=== PATIENT | female | born 1940 | race African-American/Black ===

== ENCOUNTER 2018-09-05 21:53 | Observation (INO) ==
[2018-09-05 23:06] LABS: Basophils % 0.1 % (0.0-0.8); Eosinophils % 0.3 % (0.00-10.9); Hematocrit 37.3 VOL% (35.7-47.0); Hemoglobin 11.4 GM/DL (12.0-16.0); Immature Granulocytes % 0.8 %; Immature Granulocytes Absolute 0.09 #; Lymphocytes # 0.5 10*3/uL (1.4-4.0); Lymphocytes % 4.6 % (21.3-54.2); Mean Corpuscular HGB Conc 30.6 GM/DL (32-36); Mean Corpuscular Hemoglobin 26 PG (27-34); Mean Corpuscular Volume 86.1 FL (87-102); Mean Platelet Volume 11.5 FL (9.6-12.0); Monocytes # 0.3 10*3/uL (0.11-0.8); Monocytes % 2.6 % (1.7-12.7); Neutrophils # 9.7 10*3/uL (1.4-7.4); Neutrophils % 91.6 % (38.7-73.9); Platelet Count 303 T/CUMM (130-400); Red Blood Count 4.33 MC/CUMM (3.8-5.5); Red Cell Distribution Width 16.7 % (9.3-17.3); White Blood Count 10.6 T/CUMM (4-12)
[2018-09-05 23:15] LABS: INR 1.5; PT Patient Result 15.7 SECS; Partial Thromboplastin Time 29.9 SECS (0-40)
[2018-09-05 23:18] LABS: Alanine Aminotransferase 22 U/L (13-56); Albumin 2.6 G/DL (3.4-5.0); Alkaline Phosphatase 78 U/L (45-117); Aspartate Amino Transferase 15 U/L (0-37); Bilirubin,Total < 0.39 MG/DL (0.2-1.0); Blood Urea Nitrogen 9 MG/DL (7-18); Calcium 8.8 MG/DL (8.5-10.1); Glucose 118 MG/DL (74-106); Osmolality,Calculated 272.8 MOS/KG (273-304); Sodium 137 MMOL/L (136-145); Total Protein 7.5 G/DL (6.4-8.3)
[2018-09-05 23:32] LABS: Lymphocytes 4 % (20-55); Segmented Neutrophils 94 % (50-85)
[2018-09-05 23:34] LABS: Ovalocytes 1+; Platelet Estimate Normal
[2018-09-05 23:35] LABS: Hypochromasia Slight; Polychromasia Few; Total Cells Counted 100
[2018-09-06] MEDS ORDERED: SODIUM CHLORIDE 0.9% 1,000 ML IV STA (00:46)
[2018-09-06] MEDS ORDERED: ONDANSETRON 4 MG/2 ML VIAL IV PRN (03:45)
[2018-09-06] MEDS ORDERED: ALBUTEROL/IPRATROPIUM 3 ML NEB RESP TX PRN (04:28)
[2018-09-06 09:16] LABS: Hematocrit 35.5 VOL% (35.7-47.0); Hemoglobin 10.9 GM/DL (12.0-16.0)
[2018-09-06] MEDS ORDERED: SULFAMETHOX/TRIMETHOPRIM 800-160 MG TABLET ONE (10:13)
[2018-09-06] MEDS: predniSONE 10 MG TABLET PO SCH (11:20)
[2018-09-06] MEDS: SULFAMETHOX/TRIMETHOPRIM 400-80 MG TABLET PO SCH ×2 (11:20→20:53)
[2018-09-06] MEDS: NITROFURANTOIN MACRO/MONO 100 MG CAPSULE PO SCH ×2 (11:20→20:53)
[2018-09-06 16:25] LABS: Hematocrit 34.4 VOL% (35.7-47.0); Hemoglobin 10.5 GM/DL (12.0-16.0)
[2018-09-06] MEDS: ACETAMINOPHEN 325 MG TABLET PO PRN (20:53)
[2018-09-06 22:27] LABS: Hematocrit 33.5 VOL% (35.7-47.0); Hemoglobin 10.4 GM/DL (12.0-16.0)
[2018-09-07 06:31] LABS: Basophils % 0.3 % (0.0-0.8); Eosinophils # 0.2 10*3/uL (0.0-0.87); Eosinophils % 1.8 % (0.00-10.9); Hematocrit 35.9 VOL% (35.7-47.0); Hemoglobin 10.8 GM/DL (12.0-16.0); Immature Granulocytes % 0.7 %; Immature Granulocytes Absolute 0.08 #; Lymphocytes # 1.3 10*3/uL (1.4-4.0); Lymphocytes % 11.1 % (21.3-54.2); Mean Corpuscular HGB Conc 30.1 GM/DL (32-36); Mean Corpuscular Hemoglobin 26 PG (27-34); Mean Corpuscular Volume 86.7 FL (87-102); Monocytes # 0.7 10*3/uL (0.11-0.8); Monocytes % 6.1 % (1.7-12.7); Neutrophils # 9.4 10*3/uL (1.4-7.4); Platelet Count 319 T/CUMM (130-400); Red Blood Count 4.14 MC/CUMM (3.8-5.5); Red Cell Distribution Width 16.7 % (9.3-17.3); White Blood Count 11.8 T/CUMM (4-12)
[2018-09-07 06:43] LABS: INR 1.6; PT Patient Result 17.1 SECS
[2018-09-07 06:54] LABS: Calcium 8.5 MG/DL (8.5-10.1); Osmolality,Calculated 275.4 MOS/KG (273-304); Potassium 3.8 MMOL/L (3.5-5.1)
[2018-09-07] MEDS: ACETAMINOPHEN 325 MG TABLET PO PRN (08:57)
[2018-09-07] MEDS: predniSONE 10 MG TABLET PO SCH (12:16)
[2018-09-07] MEDS: NITROFURANTOIN MACRO/MONO 100 MG CAPSULE PO SCH (12:16)
[2018-09-07] MEDS: SULFAMETHOX/TRIMETHOPRIM 400-80 MG TABLET PO SCH (12:16)
[2018-09-07 13:14] LABS: Apearance,Urine Slightly Hazy (Clear); Bilirubin,Urine Negative (Negative); Blood, Urine Large mg/dL (Negative); Glucose,Urine (UA) Negative (Negative); Ketones,Urine Negative (Negative); Mucus,Urine Occasional /LPF (Occasional); Nitrite,Urine Negative (Negative); Protein,Urine Negative; RBC,Urine 849 /HPF (0-4); Urine Color Yellow (Yellow); Urine Specific Gravity 1.009 (1.001-1.035); Urine Urobilinogen < 2.0 EU/DL (0.2-1.0); WBC,Urine 143 /HPF (0-6)
[2018-09-07 15:40] VITALS: BP 123/63
== END 2018-09-07 15:40 | disposition home or self-care (01) ==
LOC: N.EDINP 21:53 → N.ED 21:53 → N.EDINP 09-06 13:09 → N.5E 09-06 13:29
PROVIDERS: ADMIT Internal Medicine; ATTEND Internal Medicine